=== PATIENT | female | born 1990 | race Caucasian/White ===

== ENCOUNTER 2025-04-12 10:25 | Outpatient (CLI) | payer OTHER, SELFPAY | END 2025-04-12 10:26 | disposition home or self-care (01) | LOC: LKVREF 10:34 | PROVIDERS: Visit Provider Nurse Practitioner Family | DX: R53.83 Other fatigue (principal); I10 Essential (primary) hypertension; Z13.6 Encounter for screening for cardiovascular disorders | CPT/HCPCS: 80053; 80061; 82728; 83735; 84443 ==